=== PATIENT | male | born 1980 | race Two or more races ===

== ENCOUNTER 2020-02-18 15:09 | Emergency (ER) | payer SELFPAY ==
[~2020-02-18] VITALS: Ht 175.3 cm; Wt 113.4 kg
[2020-02-18 17:12] VITALS: BP 135/85
== END 2020-02-18 16:37 | disposition home or self-care (01) ==
LOC: ER 15:09 → EDUNIT# 15:09 → ER 16:37
DX: J06.9 Acute upper respiratory infection, unspecified (principal)
CPT/HCPCS: 71045

== ENCOUNTER 2022-11-27 09:51 | Emergency (ER) | payer MEDICAID ==
[~2022-11-27] VITALS: Ht 175.3 cm; Wt 114.4 kg
[2022-11-27 10:38] VITALS: BP 132/99
[2022-11-27] MEDS ORDERED: KETOROLAC TROMETH 60MG/2ML VIAL IM ONE (11:00)
[2022-11-27] MEDS ORDERED: IBUP-1455 PO (12:42)
[2022-11-27] MEDS ORDERED: CYCL-839 PO (12:42)
[2022-11-27] MEDS ORDERED: HYDR-4902 PO (12:42)
== END 2022-11-27 12:57 | disposition home or self-care (01) ==
LOC: ER 09:51
DX: S39.012A Strain of muscle, fascia and tendon of lower back, initial encounter (principal); E66.01 Morbid (severe) obesity due to excess calories; Z68.37 Body mass index [BMI] 37.0-37.9, adult; X50.1XXA Overexertion from prolonged static or awkward postures, initial encounter; Y93.89 Activity, other specified; Y92.89 Other specified places as the place of occurrence of the external cause; Y99.8 Other external cause status
CPT/HCPCS: 72100; 96372; 99283; J1885